=== PATIENT | female | born 1995 | race Caucasian/White ===

== ENCOUNTER → 2018-11-23 00:40 | Observation (INO) ==
[2018-11-22 22:37] LABS: Amphetamine Screen,Urine Negative ng/mL (Cutoff=1000); Barbiturate Screen,Urine Negative ng/mL (Cutoff=200); Benzodiazepines Screen,Urine Negative ng/mL (Cutoff=200); Cannabinoid Screen,Urine Negative ng/mL (Cutoff = 50); Cocaine Screen,Urine Negative ng/mL (Cutoff= 300); Opiate Screen,Urine Negative ng/mL (Cutoff=300); Phencyclidine Screen,Urine Negative ng/mL (Cutoff=25)
--- NOTE | 2018-11-22 22:38 | OB/GYN Progress Note ---
Date of Encounter: 11/22/18 Time of Encounter: 22:36 - Assessment and Plan (1) 35 weeks gestation of Current Visit: Yes Status: Acute NST reactive; 3 minute deceleration to 70 noted. Variablity maintained during deceleration; returned to baseline. Will monitor for additional 2 hours Vaginosis panel - Trich. Rx given. Encouraged patient to have partner(s) treated. No intercourse until LEXY completed. Discharge home with PTL precautions Follow up with primary CHIEF PSYCHOLOGIST as scheduled for routine care, LEXY, and PRN (2) NST (non-stress test) reactive Current Visit: Yes Status: Acute Subjective - Subjective Principal diagnosis: leaking Interval history: Ms Junior is a at 35 weeks and 3 days that presents to triage with c/o vaginal discharge x 1 week. She states that she has had a slight increase in genesis ramirez contractions. She denies intercourse in the past 48 hours. She states her primary OB at [facility] did not do an exam at her last visit when she c/o vaginal discharge and she is concerned that she may be leaking fluid. She states positive movement. She denies headaches, vision changes, epigastric pain, vaginal bleeding, and contractions. She states this has been an uncomplicated . Antepartum ROS: loss of fluid, movement normal Objective - Vital Signs Vital Signs: Intake and Output 11/22/18 11/22/18 11/22/18 07:59 15:59 23:59 Other: Weight 84.822 kg Patient Weight 11/22/18 23:59 Weight 84.822 kg - Exam FHR: auscultation normal, category 1 FHR comments: Baseline 140 Cat 1 tracing No contractions per TOCO, patient report, or palpation Auscultation: bilateral: normal Abdomen: Present: normal appearance, gravid Uterus: Present: normal. Absent: firm, tenderness Cervical dilation: FT Cervix effacement: Thick station: High Comments: Nitrazine negative Thin white vaginal discharge - no odor
[2018-11-22 23:18] LABS: Gardnerella DNA Not Detected (Not Detect); Trichomonas DNA DETECTED (Not Detect)
[2018-11-22 23:19] LABS: Candida DNA Not Detected (Not Detect)
[~2018-11-23 00:40] MED LIST: Acetaminophen 325 MG TABLET PO ONE
== END | disposition home or self-care (01) ==
LOC: 1NENULAB
PROVIDERS: ADMIT Advanced Practice Midwife; ATTEND Advanced Practice Midwife